=== PATIENT | male | born 1940 | race Asian ===

== ENCOUNTER 2017-02-14 07:06 | Emergency (ER) | payer OTHER, MEDICARE, MEDICAID ==
[~2017-02-14] VITALS: Ht 167.6 cm; Wt 50.0 kg
[~2017-02-14 07:06] MED LIST: ATOR10TA PO; ATORVASTATION
[2017-02-14 08:37] VITALS: BP 123/77
[2017-02-14 08:53] LABS: BASOPHILS % 0.4 % (0.0-2.0); EOSINOPHILS % 0.6 % (0.0-5.0); HEMATOCRIT. 31.2 % (42.0-52.0); HEMOGLOBIN. 10.3 g/dL (14.0-18.0); LYMPHOCYTES % 14.4 % (20.0-50.0); MEAN CORPUSCULAR VOLUME 90.7 fL (80.0-94.0); MEAN PLATELET VOLUME 7.6 fl (7.4-10.4); MONOCYTES % 7.9 % (2.0-8.0); NEUTROPHILS % 76.7 % (40.0-76.0); PLATELET 347 x1000/uL (130-400); RED BLOOD CELL COUNT 3.43 mill/uL (4.7-6.1); RED CELL DISTRIBUTION WIDTH 16.3 % (11.6-14.6)
[2017-02-14 08:58] LABS: CHLORIDE 100 mEq/L (98-107)
[2017-02-14 09:01] LABS: INR 1.1; PARTIAL THROMBOPLASTIN TIME 30.1 sec (24.0-34.0); PROTHROMBIN TIME 11.5 sec
[2017-02-14 09:07] LABS: CARBON DIOXIDE 28 mEq/L (21-32)
[2017-02-14 09:11] LABS: CLARITY URINE CLEAR (CLEAR); COLOR URINE YELLOW (YELLOW); GLUCOSE URINE NEGATIVE (NEGATIVE); KETONES URINE NEGATIVE (NEGATIVE); LEUKOCYTE ESTERASE URINE NEGATIVE (NEGATIVE); NITRITE URINE NEGATIVE (NEGATIVE); OCCULT BLOOD URINE NEGATIVE (NEGATIVE); PH URINE 6.5 (4.5-8.0); PROTEIN URINE NEGATIVE (NEGATIVE); SPECIFIC GRAVITY URINE 1.008 (1.005-1.030); UROBILINOGEN URINE 0.2 E.U./dL (0.2-1.0)
[2017-02-14] MEDS ORDERED: LEVOFLOXACIN 500MG TABLET PO ONE (11:00)
[2017-02-14] MEDS ORDERED: LEVOFLOXACIN 250MG TABLET PO ONE (11:15)
[2017-02-14] MEDS ORDERED: IOHEXOL-300 100 ML BOTTLE ONE (14:10)
[2017-02-14] MEDS ORDERED: SODIUM CHLORIDE 0.9% 10ML VIAL ONE (14:10)
== END 2017-02-14 12:17 | disposition home or self-care (01) ==
LOC: ER 07:20
DX: L76.34 Postprocedural seroma of skin and subcutaneous tissue following other procedure (principal); E11.9 Type 2 diabetes mellitus without complications; D72.829 Elevated white blood cell count, unspecified; E87.1 Hypo-osmolality and hyponatremia; Z85.07 Personal history of malignant neoplasm of pancreas; Z90.3 Acquired absence of stomach [part of]; Y83.6 Removal of other organ (partial) (total) as the cause of abnormal reaction of the patient, or of later complication, without mention of misadventure at the time of the procedure; Y92.018 Other place in single-family (private) house as the place of occurrence of the external cause
CPT/HCPCS: 36415; 74177; 80053; 81003; 83605; 83690; 85025; 85610; 85730; 87040; 87070; 87077; 87186; 87205; 99285; A4216; Q9967